=== PATIENT | male | born 1940 | race Caucasian/White ===

== ENCOUNTER 2023-05-23 19:04 | Inpatient (IN) | payer MEDICARE ==
[2023-05-23 20:05] LABS: #Basophils 0.1 10x3/uL (0.0-0.2); #Eosinphils 0.3 10x3/uL (0.0-0.5); #Monocytes 0.7 10x3/uL (0.0-1.1); #Neutrophils 4.6 10x3/uL (1.5-8.4); %Basophils 0.8 % (0.0-2.0); %Eosinophils 3.9 % (0.0-6.0); %Lymphocytes 34.4 % (18.0-47.0); %Monocytes 8.5 % (0.0-10.0); %Neutrophils 52.2 % (40.0-75.0); Hemoglobin 10.9 g/dL (13.5-17.5); Mean Corpuscular HGB CONC 32.5 g/dL (32.0-36.0); Mean Corpuscular Hemoglobin 29.4 pg (27.0-33.0); Mean Corpuscular Volume 90.3 fl (81.2-95.1); Mean Platelet Volume 9.3 fl (7.4-10.4); Platelet Count 268 10x3/uL (150-450); RBC Distribution Width 14.1 % (11.5-14.5); Red Blood Cell (RBC) Count 3.71 10x6/uL (4.32-5.72); White Blood Cell (WBC) Count 8.8 10x3/uL (3.5-10.5)
[2023-05-23 20:18] LABS: ALT (SGPT) 10 U/L (8-55); AST (SGOT) 18 U/L (5-34); Albumin 3.7 g/dL (3.4-4.8); Alkaline Phosphatase 58 U/L (40-110); Anion Gap 13 mmol/L (10-20); BUN (Urea Nitrogen) 18 mg/dL (8.4-25.7); Bilirubin, Total 0.3 mg/dL (0.2-1.2); Calc. Creatinine Clearance 0 mL/min (70-130); Calcium 8.8 mg/dL (7.8-10.44); Carbon Dioxide 23 mmol/L (23-31); Chloride 107 mmol/L (98-107); Estimated GFR 67; Globulin 3.4 g/dL (2.4-3.5); Glucose 114 mg/dL (83-110); Protein, Total 7.1 g/dL (5.8-8.1); Sodium 139 mmol/L (136-145)
[2023-05-23 20:20] LABS: INR-International Normal Ratio 1.1; PTT 31.6 sec (22.0-33.0); Prothrombin Time 11.8 sec (9.5-12.1)
[2023-05-23] MEDS ORDERED: Pantoprazole 40 MG VIAL ONE (20:41)
[2023-05-23] MEDS ORDERED: Pantoprazole 80 MG in Sodium Chloride 0.9% 100 ML IVPB SCH (21:00)
[2023-05-23 21:08] LABS: Bilirubin Neg (Negative); Blood, Urine 25 (Negative); Clarity Clear (Clear); Glucose, Urine (Dipstick) Normal (Negative); Ketone, Urine Negative (Negative); Leukocyte Negative (Negative); Nitrite Negative (Negative); Protein, Urine (Dipstick) Negative (Neg-Trace); Urobilinogen Normal mg/dL (Less than 2)
[2023-05-23 21:31] LABS: Bacteria/HPF Rare-Few HPF (None Seen); CAUTI Indications for Culture Alt mental st,lethar; Mucous/LPF Rare LPF (<2+); Squamous Epithelial 0-3 HPF (0-3); WBC/HPF 0-3 HPF (0-3)
[2023-05-23 21:32] LABS: Urine Culture Reflex No No
[2023-05-23] MEDS ORDERED: Calcium Carbonate 500 MG ChewTAB PO PRN (22:39)
[2023-05-23] MEDS ORDERED: Guaifenesin DM 100-10/5 ML UDCUP PO PRN (22:39)
[2023-05-23] MEDS ORDERED: Ondansetron PF 4 MG/2 ML Vial IVP PRN (22:39)
[2023-05-23] MEDS ORDERED: HYDROcodone/Acetaminophen 5/325 mg Tablet PO PRN (22:39)
[2023-05-23] MEDS ORDERED: Dextrose 5% in Water 1,000 ML IV PRN (22:39)
[2023-05-23] MEDS ORDERED: Senokot S 8.6-50 MG TAB PO PRN (22:39)
[2023-05-23] MEDS ORDERED: Glucagon 1 MG/ML KIT IM PRN (22:39)
[2023-05-23] MEDS ORDERED: Dextrose 50% Abboject 50 ML SYRINGE SLOW IVP PRN (22:39)
[2023-05-23] MEDS ORDERED: Acetaminophen 325 MG TAB PO PRN (22:39)
[2023-05-23] MEDS ORDERED: Lactated Ringer's 500 ML IV SCH (22:45)
[2023-05-24 00:55] VITALS: BMI 31.6
[2023-05-24 03:29] LABS: #Basophils 0.1 10x3/uL (0.0-0.2); #Eosinphils 0.4 10x3/uL (0.0-0.5); #Monocytes 0.7 10x3/uL (0.0-1.1); #Neutrophils 7.4 10x3/uL (1.5-8.4); %Basophils 0.5 % (0.0-2.0); %Eosinophils 3.1 % (0.0-6.0); %Lymphocytes 24.3 % (18.0-47.0); %Monocytes 6.2 % (0.0-10.0); %Neutrophils 65.6 % (40.0-75.0); Hemoglobin 9.9 g/dL (13.5-17.5); Mean Corpuscular HGB CONC 31.6 g/dL (32.0-36.0); Mean Corpuscular Hemoglobin 29.1 pg (27.0-33.0); Mean Corpuscular Volume 92.1 fl (81.2-95.1); Mean Platelet Volume 9.4 fl (7.4-10.4); Platelet Count 242 10x3/uL (150-450); RBC Distribution Width 14.2 % (11.5-14.5); White Blood Cell (WBC) Count 11.2 10x3/uL (3.5-10.5)
[2023-05-24 03:33] LABS: Anion Gap 12 mmol/L (10-20); BUN (Urea Nitrogen) 15 mg/dL (8.4-25.7); Calc. Creatinine Clearance 93 mL/min (70-130); Calcium 8.3 mg/dL (7.8-10.44); Carbon Dioxide 21 mmol/L (23-31); Chloride 109 mmol/L (98-107); Estimated GFR 82; Glucose 111 mg/dL (83-110); Potassium 4.1 mmol/L (3.5-5.1); Sodium 138 mmol/L (136-145)
[2023-05-24] MEDS: Pantoprazole 40 MG VIAL IVP SCH ×2 (08:35→20:01)
[2023-05-24] MEDS: Gabapentin 300 MG CAP PO SCH ×2 (08:35→20:01)
[2023-05-24] MEDS: Carvedilol 3.125 MG TAB PO SCH (08:36)
[2023-05-24] MEDS: DULoxetine 20 MG CAP PO SCH (08:57)
[2023-05-24] MEDS: Donepezil HCl 5 MG TAB PO SCH (08:57)
[2023-05-24 10:06] LABS: #Basophils 0.1 10x3/uL (0.0-0.2); #Eosinphils 0.2 10x3/uL (0.0-0.5); #Monocytes 0.6 10x3/uL (0.0-1.1); %Basophils 0.5 % (0.0-2.0); %Eosinophils 1.7 % (0.0-6.0); %Lymphocytes 20.9 % (18.0-47.0); %Monocytes 5.5 % (0.0-10.0); Hemoglobin 9.5 g/dL (13.5-17.5); Mean Corpuscular HGB CONC 31.5 g/dL (32.0-36.0); Mean Corpuscular Hemoglobin 29.1 pg (27.0-33.0); Mean Corpuscular Volume 92.6 fl (81.2-95.1); Mean Platelet Volume 10.6 fl (7.4-10.4); Platelet Count 197 10x3/uL (150-450); RBC Distribution Width 14.4 % (11.5-14.5); Red Blood Cell (RBC) Count 3.26 10x6/uL (4.32-5.72); White Blood Cell (WBC) Count 11.2 10x3/uL (3.5-10.5)
[2023-05-24] MEDS: Melatonin 3 MG TAB PO SCH (20:01)
[2023-05-24] MEDS: Tamsulosin HCl 0.4 MG CAP PO SCH (20:02)
[2023-05-24] MEDS: Simvastatin 10 MG TAB PO SCH (20:02)
[2023-05-25 04:09] LABS: #Basophils 0.1 10x3/uL (0.0-0.2); #Eosinphils 0.2 10x3/uL (0.0-0.5); #Neutrophils 7.8 10x3/uL (1.5-8.4); %Basophils 0.4 % (0.0-2.0); %Eosinophils 1.2 % (0.0-6.0); %Lymphocytes 31.8 % (18.0-47.0); %Monocytes 7.8 % (0.0-10.0); %Neutrophils 58.3 % (40.0-75.0); Hemoglobin 9.1 g/dL (13.5-17.5); Mean Corpuscular HGB CONC 32.2 g/dL (32.0-36.0); Mean Corpuscular Hemoglobin 29.2 pg (27.0-33.0); Mean Corpuscular Volume 90.7 fl (81.2-95.1); Mean Platelet Volume 9.6 fl (7.4-10.4); Platelet Count 228 10x3/uL (150-450); RBC Distribution Width 14.4 % (11.5-14.5); Red Blood Cell (RBC) Count 3.12 10x6/uL (4.32-5.72); White Blood Cell (WBC) Count 13.3 10x3/uL (3.5-10.5)
[2023-05-25 04:15] LABS: Anion Gap 12 mmol/L (10-20); BUN (Urea Nitrogen) 15 mg/dL (8.4-25.7); Calc. Creatinine Clearance 88 mL/min (70-130); Calcium 8.3 mg/dL (7.8-10.44); Carbon Dioxide 22 mmol/L (23-31); Chloride 106 mmol/L (98-107); Estimated GFR 77; Glucose 114 mg/dL (83-110); Potassium 4.6 mmol/L (3.5-5.1); Sodium 135 mmol/L (136-145)
[2023-05-25] MEDS: Gabapentin 300 MG CAP PO SCH ×2 (09:45→21:00)
[2023-05-25] MEDS: Donepezil HCl 5 MG TAB PO SCH (09:45)
[2023-05-25] MEDS: Pantoprazole 40 MG VIAL IVP SCH ×2 (09:45→21:03)
[2023-05-25] MEDS: Carvedilol 3.125 MG TAB PO SCH (09:45)
[2023-05-25] MEDS: DULoxetine 20 MG CAP PO SCH (09:54)
[2023-05-25] MEDS ORDERED: GoLYTELY 4,000 ml Bottle PO SCH ×2 (13:00→18:00)
[2023-05-25] MEDS: Simvastatin 10 MG TAB PO SCH (21:00)
[2023-05-25] MEDS: Tamsulosin HCl 0.4 MG CAP PO SCH (21:01)
[2023-05-26] MEDS: Melatonin 3 MG TAB PO SCH ×2 (04:21→21:20)
[2023-05-26 05:58] LABS: Hemoglobin 9.7 g/dL (13.5-17.5); Mean Corpuscular HGB CONC 32.6 g/dL (32.0-36.0); Mean Corpuscular Hemoglobin 29.1 pg (27.0-33.0); Mean Corpuscular Volume 89.5 fl (81.2-95.1); Mean Platelet Volume 10.2 fl (7.4-10.4); Platelet Count 209 10x3/uL (150-450); RBC Distribution Width 14.3 % (11.5-14.5); Red Blood Cell (RBC) Count 3.33 10x6/uL (4.32-5.72)
[2023-05-26 06:06] LABS: #Basophils 0.1 10x3/uL (0.0-0.2); #Eosinphils 0.2 10x3/uL (0.0-0.5); #Neutrophils 7.7 10x3/uL (1.5-8.4); %Basophils 0.5 % (0.0-2.0); %Eosinophils 1.7 % (0.0-6.0); %Lymphocytes 27.4 % (18.0-47.0); %Monocytes 7.7 % (0.0-10.0); %Neutrophils 62.3 % (40.0-75.0)
[2023-05-26] MEDS: Carvedilol 3.125 MG TAB PO SCH (08:13)
[2023-05-26] MEDS: Gabapentin 300 MG CAP PO SCH ×2 (09:23→21:20)
[2023-05-26] MEDS: DULoxetine 20 MG CAP PO SCH (09:25)
[2023-05-26] MEDS: Donepezil HCl 5 MG TAB PO SCH (09:25)
[2023-05-26] MEDS: Pantoprazole 40 MG VIAL IVP SCH ×2 (09:32→21:21)
[2023-05-26] MEDS ORDERED: Ketamine 50 MG/ML (10ML VIAL) ONE (14:13)
[2023-05-26] MEDS ORDERED: PROPOFOL 40 ML ONE (14:14)
[2023-05-26] MEDS ORDERED: PHENYLEPHRINE-NS 100 MCG/ML 10 ML SYRINGE ONE ×2 (14:26→15:00)
[2023-05-26] MEDS: Simvastatin 10 MG TAB PO SCH (21:19)
[2023-05-26] MEDS: Tamsulosin HCl 0.4 MG CAP PO SCH (21:20)
[2023-05-27 05:32] LABS: #Basophils 0.1 10x3/uL (0.0-0.2); #Eosinphils 0.3 10x3/uL (0.0-0.5); #Monocytes 0.8 10x3/uL (0.0-1.1); %Basophils 0.6 % (0.0-2.0); %Eosinophils 2.6 % (0.0-6.0); %Lymphocytes 28.9 % (18.0-47.0); %Monocytes 7.9 % (0.0-10.0); %Neutrophils 59.6 % (40.0-75.0); Hemoglobin 8.9 g/dL (13.5-17.5); Mean Corpuscular HGB CONC 32.2 g/dL (32.0-36.0); Mean Corpuscular Hemoglobin 29.1 pg (27.0-33.0); Mean Corpuscular Volume 90.2 fl (81.2-95.1); Mean Platelet Volume 9.7 fl (7.4-10.4); Platelet Count 239 10x3/uL (150-450); RBC Distribution Width 14.3 % (11.5-14.5); Red Blood Cell (RBC) Count 3.06 10x6/uL (4.32-5.72); White Blood Cell (WBC) Count 10.1 10x3/uL (3.5-10.5)
[2023-05-27] MEDS: Gabapentin 300 MG CAP PO SCH ×2 (09:33→20:42)
[2023-05-27] MEDS: Donepezil HCl 5 MG TAB PO SCH (09:33)
[2023-05-27] MEDS: Pantoprazole 40 MG VIAL IVP SCH (09:34)
[2023-05-27] MEDS: Carvedilol 3.125 MG TAB PO SCH (09:34)
[2023-05-27] MEDS: DULoxetine 20 MG CAP PO SCH (09:45)
[2023-05-27] MEDS: Tamsulosin HCl 0.4 MG CAP PO SCH (20:42)
[2023-05-27] MEDS: Simvastatin 10 MG TAB PO SCH (20:43)
[2023-05-27] MEDS: Melatonin 3 MG TAB PO SCH (20:43)
[2023-05-28 06:11] LABS: #Basophils 0.1 10x3/uL (0.0-0.2); #Eosinphils 0.2 10x3/uL (0.0-0.5); #Monocytes 0.8 10x3/uL (0.0-1.1); #Neutrophils 6.2 10x3/uL (1.5-8.4); %Basophils 0.6 % (0.0-2.0); %Eosinophils 1.8 % (0.0-6.0); %Lymphocytes 28.9 % (18.0-47.0); %Monocytes 8.2 % (0.0-10.0); Hemoglobin 8.9 g/dL (13.5-17.5); Mean Corpuscular HGB CONC 32.6 g/dL (32.0-36.0); Mean Corpuscular Volume 88.9 fl (81.2-95.1); Mean Platelet Volume 9.7 fl (7.4-10.4); Platelet Count 261 10x3/uL (150-450); Red Blood Cell (RBC) Count 3.07 10x6/uL (4.32-5.72); White Blood Cell (WBC) Count 10.3 10x3/uL (3.5-10.5)
[2023-05-28] MEDS: Carvedilol 3.125 MG TAB PO SCH (08:41)
[2023-05-28] MEDS: Gabapentin 300 MG CAP PO SCH ×2 (08:41→21:08)
[2023-05-28] MEDS: Donepezil HCl 5 MG TAB PO SCH (08:41)
[2023-05-28] MEDS: DULoxetine 20 MG CAP PO SCH (08:42)
[2023-05-28] MEDS: Melatonin 3 MG TAB PO SCH (21:08)
[2023-05-28] MEDS: Tamsulosin HCl 0.4 MG CAP PO SCH (21:08)
[2023-05-28] MEDS: Simvastatin 10 MG TAB PO SCH (21:08)
[2023-05-29 05:40] LABS: #Basophils 0.1 10x3/uL (0.0-0.2); #Eosinphils 0.3 10x3/uL (0.0-0.5); #Monocytes 0.9 10x3/uL (0.0-1.1); #Neutrophils 5.9 10x3/uL (1.5-8.4); %Basophils 0.5 % (0.0-2.0); %Eosinophils 2.5 % (0.0-6.0); %Lymphocytes 31.7 % (18.0-47.0); %Monocytes 8.5 % (0.0-10.0); %Neutrophils 56.2 % (40.0-75.0); Hemoglobin 9.2 g/dL (13.5-17.5); Mean Corpuscular HGB CONC 32.1 g/dL (32.0-36.0); Mean Corpuscular Hemoglobin 28.7 pg (27.0-33.0); Mean Corpuscular Volume 89.4 fl (81.2-95.1); Mean Platelet Volume 9.2 fl (7.4-10.4); Platelet Count 235 10x3/uL (150-450); RBC Distribution Width 13.6 % (11.5-14.5); Red Blood Cell (RBC) Count 3.21 10x6/uL (4.32-5.72); White Blood Cell (WBC) Count 10.5 10x3/uL (3.5-10.5)
[2023-05-29 05:54] LABS: Anion Gap 13 mmol/L (10-20); BUN (Urea Nitrogen) 17 mg/dL (8.4-25.7); Calc. Creatinine Clearance 97 mL/min (70-130); Calcium 8.5 mg/dL (7.8-10.44); Carbon Dioxide 23 mmol/L (23-31); Chloride 104 mmol/L (98-107); Estimated GFR 86; Glucose 111 mg/dL (83-110); Magnesium 2.2 mg/dL (1.6-2.6); Potassium 4.7 mmol/L (3.5-5.1); Sodium 135 mmol/L (136-145)
[2023-05-29 05:55] VITALS: TEMP 98.1
[2023-05-29] MEDS: Donepezil HCl 5 MG TAB PO SCH (09:30)
[2023-05-29] MEDS: Gabapentin 300 MG CAP PO SCH (09:30)
[2023-05-29] MEDS: Carvedilol 3.125 MG TAB PO SCH (09:30)
[2023-05-29] MEDS: DULoxetine 20 MG CAP PO SCH (09:33)
[2023-05-29 11:47] VITALS: BP 103/65
== END 2023-05-29 11:13 | disposition home or self-care (01) | DRG 378 ==
LOC: CSHERS 19:04 → CSHICU 22:39 → UNDOADMIN 05-24 00:48 → CSHICU 05-24 02:51 → CSHTELE 05-25 10:22
PROVIDERS: ADMIT Student in an Organized Health Care Education/Training Program; ATTEND Family Medicine
PROC: 5A09357 Assistance with Respiratory Ventilation, Less than 24 Consecutive Hours, Continuous Positive Airway Pressure (ICD-10-PCS; 2023-05-24)
PROC: 0W3P8ZZ Control Bleeding in Gastrointestinal Tract, Via Natural or Artificial Opening Endoscopic (ICD-10-PCS; principal; 2023-05-26)
PROC: 0DBL8ZX Excision of Transverse Colon, Via Natural or Artificial Opening Endoscopic, Diagnostic (ICD-10-PCS; 2023-05-26)
DX: K57.31 Diverticulosis of large intestine without perforation or abscess with bleeding (principal); D62 Acute posthemorrhagic anemia; I50.32 Chronic diastolic (congestive) heart failure; I48.21 Permanent atrial fibrillation; R01.1 Cardiac murmur, unspecified; E11.40 Type 2 diabetes mellitus with diabetic neuropathy, unspecified; N40.0 Benign prostatic hyperplasia without lower urinary tract symptoms; E78.2 Mixed hyperlipidemia; G47.33 Obstructive sleep apnea (adult) (pediatric); I11.0 Hypertensive heart disease with heart failure; W88.1XXA Exposure to radioactive isotopes, initial encounter; F03.90 Unspecified dementia, unspecified severity, without behavioral disturbance, psychotic disturbance, mood disturbance, and anxiety; I35.2 Nonrheumatic aortic (valve) stenosis with insufficiency; K64.8 Other hemorrhoids; K62.7 Radiation proctitis; K63.5 Polyp of colon; Z85.46 Personal history of malignant neoplasm of prostate; Z79.899 Other long term (current) drug therapy; Z90.49 Acquired absence of other specified parts of digestive tract; Z90.89 Acquired absence of other organs; Z98.890 Other specified postprocedural states; Z87.891 Personal history of nicotine dependence; Z88.8 Allergy status to other drugs, medicaments and biological substances; Z79.01 Long term (current) use of anticoagulants
CPT/HCPCS: 36415; 36416; 80048; 80053; 81001; 83735; 85025; 85610; 85730; 86850; 86900; 86901; 88305; 93306; 94660; 94760; 94762; 96374; 96376; C9113; J2704; J7120

== ENCOUNTER 2023-08-05 09:04 | Emergency (ER) | payer MEDICARE ==
[2023-08-05] MEDS ORDERED: HYDROcodone/Acetaminophen 5/325 mg Tablet ONE (09:49)
[2023-08-05 10:26] LABS: Bilirubin Neg (Negative); Blood, Urine 25 (Negative); Clarity Clear (Clear); Glucose, Urine (Dipstick) Normal (Negative); Ketone, Urine Negative (Negative); Leukocyte Negative (Negative); Nitrite Negative (Negative); Protein, Urine (Dipstick) Negative (Neg-Trace); Urobilinogen Normal mg/dL (Less than 2)
[2023-08-05 10:42] LABS: Bacteria/HPF Rare-Few HPF (None Seen); CAUTI Indications for Culture Dysuria,urgency,freq; Squamous Epithelial 0-3 HPF (0-3); WBC/HPF 0-3 HPF (0-3)
[2023-08-05 10:44] LABS: Urine Culture Reflex No No
== END 2023-08-05 12:04 | disposition home or self-care (01) ==
LOC: CSHERS 09:04
DX: R33.9 Retention of urine, unspecified (principal); I48.91 Unspecified atrial fibrillation; E11.9 Type 2 diabetes mellitus without complications; Z79.899 Other long term (current) drug therapy
CPT/HCPCS: 51702; 81001

== ENCOUNTER 2024-09-01 16:26 | Emergency (ER) | payer MEDICARE ==
[2024-09-01 16:55] LABS: Bilirubin Neg (Negative); Blood, Urine 250 (Negative); Clarity Cloudy (Clear); Glucose, Urine (Dipstick) Normal (Negative); Ketone, Urine Negative (Negative); Leukocyte 500 (Negative); Nitrite Positive (Negative); Protein, Urine (Dipstick) 30 mg/dl (Neg-Trace); Urobilinogen Normal mg/dL (Less than 2)
[2024-09-01 17:48] LABS: #Basophils 0.08 10x3/uL (0.0-0.2); #Eosinphils 0.31 10x3/uL (0.0-0.5); #Monocytes 0.75 10x3/uL (0.0-1.1); #Neutrophils 5.32 10x3/uL (1.5-8.4); %Basophils 0.8 % (0.0-2.0); %Lymphocytes 37.4 % (18.0-47.0); %Monocytes 7.2 % (0.0-10.0); %Neutrophils 51.2 % (40.0-75.0); Hematocrit 40.7 % (38.8-50.0); Hemoglobin 12.6 g/dL (13.5-17.5); Mean Corpuscular Hemoglobin 28.8 pg (27.0-33.0); Mean Corpuscular Volume 93.1 fL (81.2-95.1); Mean Platelet Volume 9.6 fL (7.4-10.4); Platelet Count 231 10x3/uL (150-450); RBC Distribution Width 14.2 % (11.5-14.5); Red Blood Cell (RBC) Count 4.37 10x6/uL (4.32-5.72); White Blood Cell (WBC) Count 10.4 10x3/uL (3.5-10.5)
[2024-09-01 18:03] LABS: ALT (SGPT) 19 U/L (8-55); AST (SGOT) 22 U/L (5-34); Albumin 3.9 g/dL (3.4-4.8); Alkaline Phosphatase 51 U/L (40-110); Anion Gap 16 mmol/L (10-20); BUN (Urea Nitrogen) 21 mg/dL (8.4-25.7); Bilirubin, Total 0.4 mg/dL (0.2-1.2); Calc. Creatinine Clearance 0 mL/min (70-130); Calcium 9.7 mg/dL (7.8-10.44); Carbon Dioxide 24 mmol/L (23-31); Chloride 104 mmol/L (98-107); Estimated GFR 61; Globulin 4.1 g/dL (2.4-3.5); Glucose 101 mg/dL (83-110); Potassium 4.9 mmol/L (3.5-5.1); Sodium 139 mmol/L (136-145)
[2024-09-01 18:16] LABS: RBC/HPF Greater than 50 HPF (0-3)
[2024-09-01 18:17] LABS: CAUTI Indications for Culture Acute Hematuria; WBC/HPF Greater than 50 HPF (0-3)
[2024-09-01 18:20] LABS: Bacteria/HPF 4+ HPF (None Seen); Squamous Epithelial 0-3 HPF (0-3); Transitional Epithelial 0-3 HPF (None Seen)
[2024-09-01 18:21] LABS: Mucous/LPF 1+ LPF (<2+)
[2024-09-01 18:22] LABS: Urine Culture Reflex Yes Yes
[2024-09-01] MEDS ORDERED: Cefuroxime 250 MG TAB PO SCH (20:15)
== END 2024-09-01 20:10 | disposition home or self-care (01) ==
LOC: CSHERS 16:26
DX: N28.1 Cyst of kidney, acquired (principal); N39.0 Urinary tract infection, site not specified; I48.91 Unspecified atrial fibrillation; E11.40 Type 2 diabetes mellitus with diabetic neuropathy, unspecified; Z79.01 Long term (current) use of anticoagulants; Z79.02 Long term (current) use of antithrombotics/antiplatelets
CPT/HCPCS: 36415; 74176; 80053; 81001; 85025; 87077; 87086; 87186